=== PATIENT | male | born 1985 | race Caucasian/White ===

== ENCOUNTER 2018-08-01 17:58 | Emergency (ER) | payer OTHER ==
[~2018-08-01] VITALS: Ht 185.4 cm; Wt 127.0 kg
[2018-08-01] MEDS ORDERED: NAPROSYN500 MG PO (18:47)
[2018-08-01] MEDS ORDERED: MEDROL DOSEPAK4 MG PO (18:47)
== END 2018-08-01 18:51 | disposition home or self-care (01) ==
LOC: ED 17:58
DX: T63.441A Toxic effect of venom of bees, accidental (unintentional), initial encounter (principal); M79.662 Pain in left lower leg; M25.522 Pain in left elbow; M54.2 Cervicalgia; R51 Headache; Z88.1 Allergy status to other antibiotic agents; Y92.89 Other specified places as the place of occurrence of the external cause